=== PATIENT | female | born 1985 | race Caucasian/White ===

== ENCOUNTER 2016-10-04 18:14 | Emergency (ER) | payer MEDICAID ==
[~2016-10-04] VITALS: Ht 172.7 cm; Wt 60.0 kg
[~2016-10-04 18:14] MED LIST: FERR240T9 PO; FERR27TA PO; PREN-39 PO; PRENAT PO; URSO300C21 PO
[2016-10-04 18:16] VITALS: Ht 172.7 cm; Wt 60.0 kg
[2016-10-04] MEDS ORDERED: NAPR-260 PO (20:15)
--- NOTE | 2016-10-04 20:24 | ERD ---
ER Documentation Chief Complaint Date/Time DATE: 10/04/16 TIME: 20:17 Chief Complaint "CHEST TIGTHNESS AND PAIN SINCE YESTERDAY" WORSE WITH MOVEMENT HPI 31-year-old otherwise healthy female presents the emergency department for complaints of chest pain since yesterday. Patient states the pain occurred while she was taking a shower and bending over and has since been experiencing an intermittent 9 out of 10 sharp pain, only when inhaling and exhaling. Patient states the pain is located in the anterior and posterior chest and feels as if it is with in her lungs. Patient states that she was sick recently with an upper respiratory infection and cough which has since resolved. She notes she experienced this pain one time previously and successfully resolved her symptoms with Naprosyn. Patient denies any history of cardiac disease, high blood pressure, hyperlipidemia, pulmonary disease, sudden from cardiac disease within her immediate family. She denies any nausea, vomiting, diarrhea, dysuria, hematuria, fever or chills. ROS All systems reviewed and are negative except as per history of present illness. Medications Home Meds Active Scripts Naproxen* (Naprosyn*) 500 Mg Tablet, 500 MG PO BID Y for PAIN AND/OR INFLAMMATION, #30 TAB Prov:CELIA MENDEZ PA-C 10/04/16 Reported Medications Ursodiol* (Actigall*) 300 Mg Cap, 300 MG PO BID, CAP 08/12/13 Ferrous Gluconate (Iron) 1 Tab Tablet, 1 TAB PO DAILY 08/12/13 Multivit/Min/Fol Ac/Iron/Pren* ( S*) 1 Tab Tab, 1 TAB PO DAILY, TAB 08/12/13 Ferrous Sulfate (Iron) 1 Tab Tablet, 1 TAB PO 06/12/13 Vits W-Ca,Fe,Fa(<1MG) ( Vitamins) 1 Tab Tablet, 1 TAB PO 06/12/13 Allergies Allergies: Coded Allergies: acetaminophen (Verified Allergy, Intermediate, 08/12/13) PMhx/Soc History of Surgery: No Hx Neurological Disorder: No Hx Respiratory Disorders: No Hx Cardiac Disorders: No Hx Psychiatric Problems: No Hx Miscellaneous Medical Probl: No Hx Alcohol Use: No Hx Substance Use: No Hx Tobacco Use: No Smoking Status: Never smoker Physical Exam Vitals Vital Signs Date Time Temp Pulse Resp B/P Pulse Ox O2 Delivery O2 Flow Rate FiO2 10/04/16 18:16 97.9 99 18 135/800 100 Physical Exam Const: Well-developed, well-nourished, no acute distress Head: Atraumatic Eyes: Normal Conjunctiva ENT: Normal External Ears, Nose and Mouth. Posterior pharynx clear without evidence of tonsillar swelling, erythema, or exudate Neck: Full range of motion..~ No meningismus. Resp: No swelling or ecchymosis to the chest wall region. Pain reproducible upon palpation of the anterior and posterior ribs. Clear to auscultation bilaterally, no wheezes, rhonchi, rales Cardio: Regular rate and rhythm, no murmurs Abd: Soft, non tender, non distended. Normal bowel sounds Skin: No petechiae or rashes Back: No midline or flank tenderness Ext: No cyanosis, or edema Neur: Awake and alert Psych: Normal Mood and Affect Results 24 hrs Current Medications Medications (Trade) Dose Ordered Sig/Louie Route PRN Reason Start Time Stop Time Status Last Admin Dose Admin Ibuprofen (Motrin) 600 mg ONCE ONCE PO 10/04/16 20:30 10/04/16 20:31 Procedures/MDM This is an otherwise healthy 31-year-old female who presents the emergency department for complaints of chest pain 1 day. Patient denies history of cardiac or pulmonary disease. Upon arrival, patient well-appearing and in no acute distress. Vital signs reviewed. Patient afebrile, non-tachycardic, normotensive and non-hypoxic. Patient's pain was reproducible upon exam during palpation of the anterior and posterior chest wall. Patient denies history of sudden in her immediate family or history of any chronic disease. Patient 's international heart score currently 0. EKG: Interpreted by Dr. Eliceo Bray Rate/Rhythm: Normal Sinus Rhythm QRS, ST, T-waves: No changes consistent w/ acute ischemia Impression: No evidence of ischemia or arrhythmia At this time I have low suspicion for acute coronary syndrome, pulmonary embolus , pneumothorax, Boerhaave syndrome, pneumonia, strep pharyngitis, severe systemic illness, or sepsis. Patient reassured as her symptoms are likely due to acute post viral costochondritis. Patient received 1 dose of Motrin in the emergency department and instructed to continue NSAIDs for pain relief. Based on patient's history of present illness and physical examination the decision was made to discharge. The patient was re-evaluated after ED treatment and stabilizing measures, and symptoms have improved. There is no evidence of life threatening injuries or illnesses at this time. On re-examination, patient resting in no distress, stable vital signs, reports feeling better and safe for discharge with outpatient follow up with PMD in 1-2 days. Patient given return precautions. Departure Diagnosis: Primary Impression: Chest pain Chest pain type: intercostal pain Qualified Code: R07.82 - Intercostal pain Condition: Good Patient Instructions: Costochondritis Referrals: [facility] YOU HAVE RECEIVED A MEDICAL SCREENING EXAM AND THE RESULTS INDICATE THAT YOU DO NOT HAVE A CONDITION THAT REQUIRES URGENT TREATMENT IN THE EMERGENCY DEPARTMENT. FURTHER EVALUATION AND TREATMENT OF YOUR CONDITION CAN WAIT UNTIL YOU ARE SEEN IN YOUR DOCTORS OFFICE WITHIN THE NEXT 1-2 DAYS. IT IS YOUR RESPONSIBILITY TO MAKE AN APPOINTMENT FOR FOLOW-UP CARE. IF YOU HAVE A PRIMARY DOCTOR --you should call your primary doctor and schedule an appointment IF YOU DO NOT HAVE A PRIMARY DOCTOR YOU CAN CALL OUR PHYSICIAN REFERRAL HOTLINE AT IF YOU CAN NOT AFFORD TO SEE A PHYSICIAN YOU CAN CHOSE FROM THE FOLLOWING [facility] [address] [facility]. [facility] [address] [facility] [facility] [address] [facility] [facility] [address] [facility]. [facility] [address] [facility]. [facility]. [address] Additional Instructions: Call your primary care doctor TOMORROW for an appointment during the next 1-2 days.See the doctor sooner or return here if your condition worsens before your appointment time. CELIA MENDEZ PA-C Oct 04, 2016 20:24
[2016-10-04 20:29] VITALS: BP 118/70; PULSE 89; RESP 18
[2016-10-04] MEDS ORDERED: IBUPROFEN 600 MG TAB PO ONE (20:30)
== END 2016-10-04 20:30 | disposition home or self-care (01) ==
LOC: FTE 18:14
DX: R07.82 Intercostal pain (principal)
CPT/HCPCS: Z7502; Z7610; 93005; 99283